=== PATIENT | female | born 1950 | race Two or more races ===

== ENCOUNTER 2023-01-07 12:07 | Emergency (ER) | payer SELFPAY ==
[~2023-01-07] VITALS: Ht 157.5 cm; Wt 83.0 kg
[2023-01-07] MEDS ORDERED: SODIUM CHLORIDE 0.9% 1,000 ML IV ONE (12:30)
[2023-01-07 13:16] LABS: COVID19 ANTIGEN SOFIA FIA NEGATIVE (NEGATIVE)
[2023-01-07 13:40] LABS: Basophils # (auto) 0.1 10 ^3/uL (0-0.2); Basophils % (auto) 1.1 % (0.0-2.0); Eosinophils # (auto) 0.1 10 ^3/uL (0-0.8); Neutrophils # (auto) 2.1 10 ^3/uL (1.6-8.6)
[2023-01-07 13:42] LABS: Eosinophils % (auto) 2.7 % (0.0-7.0); Hematocrit 44.4 % (36.0-46.0); Hemoglobin 15.5 g/dL (12.2-16.2); Lymphocytes # (auto) 2.2 10 ^3/uL (0.4-5.4); Lymphocytes % (auto) 42.4 % (10.0-50.0); Mean Corpuscular Hemoglobin 34.9 pg (28.0-32.0); Mean Corpuscular Hgb Conc. 34.8 g/dL (32.0-36.0); Mean Corpuscular Volume 100.4 fL (80.0-100.0); Monocytes # (auto) 0.6 10 ^3/uL (0-1.3); Monocytes % (auto) 11.9 % (0.0-12.0); Neutrophils % (auto) 41.9 % (37.0-80.0); Nucleated Red Blood Cells % 0.5 %; Red Blood Cells 4.42 10^6/uL (4.0-5.20); Red Cell Distribution Width 14.4 % (11.8-14.3); White Blood Cell 5.1 10^3/uL (4.4-10.8)
[2023-01-07 14:28] LABS: Alanine Aminotransferase 53 U/L (7-40); Albumin 3.6 g/dL (3.2-4.8); Alkaline Phosphatase 112 U/L (46-116); Anion Gap 8 (5-15); Aspartate Aminotransferase 90 U/L (13-40); BUN/Creatinine Ratio 23.5 (10.0-20.0); Blood Urea Nitrogen 12 mg/dL (9-23); Calcium 8.2 mg/dL (8.7-10.4); Carbon Dioxide 22 mmol/L (20-30); Chloride 108 mmol/L (98-107); Glucose 121 mg/dL (74-106); Magnesium 2.1 mg/dL (1.6-2.6); Potassium 3.7 mmol/L (3.5-5.1); Sodium 138 mmol/L (136-145)
[2023-01-07 14:29] LABS: Bilirubin, Total 2.3 mg/dL (0.2-1.0); Total Protein 7.9 g/dL (5.7-8.2)
[2023-01-07] MEDS ORDERED: NITROGLYCERIN 0.4 MG SL TAB SL PRN (17:45)
[2023-01-07] MEDS ORDERED: ONDANSETRON HCL 4 MG/2 ML VIAL IV PRN (17:45)
[2023-01-07] MEDS ORDERED: ACETAMINOPHEN 325 MG TAB PO PRN (17:45)
[2023-01-07] MEDS ORDERED: DOCUSATE SOD 100 MG CAP PO PRN (17:45)
[2023-01-07] MEDS ORDERED: MORPHINE SULFATE INJ 2 MG/ml SYRG IV PRN (17:45)
[2023-01-07] MEDS ORDERED: SODIUM CHLORIDE 0.9% 1,000 ML IV SCH (18:15)
[2023-01-07] MEDS ORDERED: ETOMIDATE (2MG/ML) 20ML VIAL IV ONE (19:15)
[2023-01-07] MEDS ORDERED: SUCCINYLCHOLINE CHLORIDE 20 MG/ML 10ML VIAL IV ONE (19:15)
[2023-01-07] MEDS ORDERED: MIDAZOLAM DRIP 50 mg/50mL 50 ML IV SCH ×2 (19:15→19:45)
[2023-01-07] MEDS ORDERED: PROPOFOL 100 ML IV SCH (20:00)
[2023-01-07] MEDS ORDERED: levETIRAcetam 500 MG/5ML INJ IV ONE (20:03)
[2023-01-07 20:34] VITALS: BP 143/73; PULSE 93; RESP 16; TEMP 97.7; O2SAT 93
[2023-01-07] MEDS ORDERED: IRBESARTAN 150 MG PO SCH (22:00)
[2023-01-08] MEDS ORDERED: LEVOTHYROXINE SODIUM 100 MCG TAB PO SCH (07:00)
[2023-01-08] MEDS ORDERED: levETIRAcetam 1000 mg/100ml 100 ML IV SCH (10:00)
[2023-01-08] MEDS ORDERED: PANTOPRAZOLE 40 MG TAB PO SCH (10:00)
== END 2023-01-07 21:09 | disposition short-term general hospital (02) ==
LOC: ER 12:07 → UNDOADMIN 17:52 → TELE 17:52 → ER 21:09
DX: R42 Dizziness and giddiness (principal); R74.01 Elevation of levels of liver transaminase levels; E80.6 Other disorders of bilirubin metabolism; R79.1 Abnormal coagulation profile; Z20.822 Contact with and (suspected) exposure to COVID-19
CPT/HCPCS: 31500; 36415; 36600; 70450; 71045; 71046; 80053; 80329; 82140; 82805; 83605; 83690; 83735; 85025; 85379; 87040; 87070; 87205; 87426; 93005; 93970; 96365; 99285; J0330; J1953; J2250; J2704